=== PATIENT | female | born 1960 | race Caucasian/White ===

== ENCOUNTER → 2024-01-21 09:48 | Outpatient (REF) | payer OTHER, SELFPAY | LOC: RAD 09:48 | PROVIDERS: ATTENDING PHYSICIAN Physician Assistant; FAMILY PHYSICIAN Family Medicine | DX: S89.91XA Unspecified injury of right lower leg, initial encounter (principal) | CPT/HCPCS: 73564 ==

== ENCOUNTER → 2024-07-12 06:27 | Day surgery (SDC) | payer BC, SELFPAY | LOC: GI 06:27 | PROVIDERS: ATTENDING PHYSICIAN Internal Medicine | DX: Z12.11 Encounter for screening for malignant neoplasm of colon (principal); D12.0 Benign neoplasm of cecum; D12.3 Benign neoplasm of transverse colon | CPT/HCPCS: 45385; 45380; 88305 ==

== ENCOUNTER → 2024-08-18 16:14 | Outpatient (REF) | payer BC, SELFPAY | LOC: HWWDC 16:14 | PROVIDERS: ATTENDING PHYSICIAN Obstetrics & Gynecology; FAMILY PHYSICIAN Family Medicine | DX: Z12.31 Encounter for screening mammogram for malignant neoplasm of breast (principal) | CPT/HCPCS: 77063; 77067 ==

== ENCOUNTER 2024-08-31 06:48 | Day surgery (SDC) | payer BC, SELFPAY ==
[2024-08-31 13:31] VITALS: BMI 26.5
[2024-08-31 13:33] VITALS: BMI 26.5
[2024-08-31 13:34] VITALS: BP 142/83
[2024-08-31] MEDS: NORMOSOL-R/PLASMALYTE-A 1000 IV (13:50)
[2024-08-31] MEDS: TYLENOL 1000 MG PO (13:50)
--- NOTE | 2024-08-31 15:08 | W.SUR.PREOP ---
Pre-Operative Surgical Note
-
I have examined this patient prior to the performance of the scheduled procedure.
The patient's condition is unchanged from the time of the current History and
Physical and the patient is able to undergo the scheduled procedure.
[2024-08-31 18:25] VITALS: BP 121/76; BP 143/83
--- NOTE | 2024-08-31 18:27 | W.IMMPOSTOP ---
Surgical Immed Post Op Note
-
Primary Surgeon: TANVIR Salmeron MD
Assisting Surgeon:
Pre-op Diagnosis: left ear deformity status post Mohs for nonmelanoma skin cancer
Post-op Diagnosis: same
Procedure Performed: left ear reconstruction with adjacent tissue transfer, full-thickness skin graft, complex closure
Anesthesia Type: General
Specimen / Cultures: None
Estimated Blood Loss: 5 cc
Complications: none
Operative Findings: well-vascularized ear following scar excision and advancement
--- NOTE | 2024-08-31 18:27 | OR.RPT ---
Operative Report
Operative Report
Date of surgery: 08/31/2024
Surgeon: TANVIR Salmeron MD
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
Postoperative diagnosis: Same
Procedure:
1. Excision of scar left ear 3 x 2 cm
2. Adjacent tissue transfer left ear 8 cm�
3. Full-thickness skin graft from left clavicle to left ear, 3 x 2 cm
4. Partial left ear reconstruction
Anesthesia: General
EBL: 10 cc
Complications: None
Indication for procedure: Patient is a 63-year-old female with a history of nonmelanoma skin cancer of the left ear canal. She underwent Mohs procedure followed by reconstruction Al[place]. She had at least 1 revision procedure. Per op reports and
photographic review, there was a large defect in including the cartilaginous and skin surface of the external auditory canal. The tragus had been removed and there was a skin paucity anterior to this. Reconstruction attempts were made with an
advancement flap of the anterior facial skin, skin graft application. Upon evaluation the patient came to me with notable cicatricial scar deformity of left ear with a frameshift inferiorly. Scar was tethering the lobule toward the EAC. Patient
desired revision ear reconstruction. Discussion was had about potentially staged procedures to get this to look like a normal ear. Attempt would be made to reposition that helix more superiorly relative to the EAC. Excision of scar would take
place and then full-thickness [place] grafting would likely be necessary. Additionally adjacent tissue transfer would be required transposing healthy nearby skin into the relative skin paucity with the superior shift. Additionally suture
reconstruction to maintain cartilaginous projection and shape would be required. Cartilage grafting may be performed at this stage or a later stage depending on soft tissue coverage. Risks include skin , partial ear loss, residual deformity,
need for repeat procedure, infection. Patient understood these risk desire to proceed and consented accordingly.
Procedure in detail: Patient was identified preoperatively and the surgical site was confirmed to be the left ear. Markings were made in the preop area discussion was had about the goals of the surgery. Ultimately the goals of the surgery were to
frameshift the superior portion of the ear superiorly and to untether the lobule with scar excision and grafting. Accordingly and adjacent tissue transfer with transposition flap was marked above the helix taking some of the temporal skin and bring
it in to where the helical rim currently sat. The clavicle is marked for an area for full-thickness skin graft as indicated. We discussed that was unlikely that cartilage grafting would be performed at this stage is stable soft tissue would be
required first. Patient was taken back to the operating room placed supine on table. Anesthesia was induced the patient was prepped with Betadine solution. She was draped in the usual sterile fashion and a timeout for patient safety was performed
confirmed that bilateral SCDs were in place and preoperative antibiotics been administered. Procedure began with the injection of a 50-50 mixture 1% lidocaine with epinephrine and half percent Marcaine. This was done in a regional block fashion.
Procedure began with the incision of the superior interface between the helical rim and the temporal skin. As this needed to be transposed superiorly a vertical incision was made for transposition flap and a backcut was made accordingly over an
area of approximately 3 x 2 cm. Once the helix was released from the tethered scar the incision was carried posteriorly until an effective friendship superiorly could be attained. After this a series of sutures were placed tethering the
cartilaginous portion of the ear to the superior temporal fascia. The transposition flap was then placed at the resultant skin defect inferior to the helical rim that was created. This was approximately at 2 cm area. As such the total square
centimeters was 8 cm for the adjacent tissue transfer. Next, tethered scar anteriorly at the level of the lobule was excised releasing a defect of approximately 3 x 2 cm and equivalent skin graft was marked out over the left clavicle and injected
with local. Skin graft was harvested and defatted. It was then placed over the anterior skin defect and sutured in place. Next additional back cuts were made posteriorly until the ear could be reconstructed and shaped via sutures into a more
normal position. Once this was achieved the skin closure was then performed with a 5-0 running stitch. A bolster was applied over the skin graft. Donor site of the left Clavicle was closed with 3-0 and 4-0 Monocryl. The patient tolerated the
procedure well, was performed without complication, all counts were correct. Adequate reconstruction had been performed the patient was taken the PACU for further care.
[2024-08-31 19:00] VITALS: BP 127/82
[2024-08-31 19:15] VITALS: BP 124/70
[2024-08-31] MEDS: ROXICODONE 5 MG PO (19:24)
== END 2024-08-31 19:45 | disposition home or self-care (01) ==
LOC: SDS 06:48
PROVIDERS: ATTENDING PHYSICIAN Surgery Plastic and Reconstructive Surgery
DX: C44.219 Basal cell carcinoma of skin of left ear and external auricular canal (principal); L90.5 Scar conditions and fibrosis of skin
CPT/HCPCS: 21235; 15260; 13152; 15004; 87070; C1894

== ENCOUNTER → 2025-08-21 07:59 | Outpatient (REF) | payer BC, SELFPAY | LOC: HWWDC 07:59 | PROVIDERS: ATTENDING PHYSICIAN Obstetrics & Gynecology; FAMILY PHYSICIAN Family Medicine | DX: Z12.31 Encounter for screening mammogram for malignant neoplasm of breast (principal) | CPT/HCPCS: 77063; 77067 ==